=== PATIENT | female | born 1960 | race American Indian/Alaskan Native ===

== ENCOUNTER 2017-03-26 13:10 | Outpatient (CLI) | payer BC ==
--- NOTE | 2017-03-26 13:38 | XRay Report ---
ROUTINE CHEST, TWO VIEWS: HISTORY: Cough, fever, abnormal lung sounds. The trachea, heart, mediastinal contour, lung light and bony thorax are unremarkable. IMPRESSION: Unremarkable chest x-ray.
== END 2017-03-26 13:11 | disposition home or self-care (01) ==
LOC: XRAY 13:10
PROVIDERS: ATTEND Physician Assistant Medical
DX: R09.89 Other specified symptoms and signs involving the circulatory and respiratory systems (principal); R50.9 Fever, unspecified; R05 Cough
CPT/HCPCS: 71020

== ENCOUNTER 2021-01-22 09:01 | Outpatient (CLI) | payer BC ==
--- NOTE | 2021-01-22 11:38 | Mammography Report ---
DIGITAL SCREENING MAMMOGRAM WITH CAD, 01/22/2021 CLINICAL INFORMATION / INDICATION: Routine screening mammography. TECHNIQUE: Digital bilateral 2D mammography was obtained in the craniocaudal and mediolateral obliqu e projections. This examination was interpreted with the benefit of Computer-Aided Detection analysis . COMPARISON: Prior mammograms 01/19/2020 and 01/11/2019 FINDINGS: Breast Density: The breasts are almost entirely fatty. No dominant mass, suspicious calcifications, or architectural distortion in either breast. There has been no significant change compared with the prior examinations. IMPRESSION: No mammographic evidence of malignancy. Follow up recommendation: Routine yearly BI-RADS Category 1: Negative. A "normal" or negative report should not discourage follow up or biopsy of a clinically significant f inding. A written summary of these findings will be mailed to the patient. The patient will be entered into a mammography reporting system which will generate a reminder letter for the patient's next appointmen t at the appropriate interval. The [employer] recommends yearly mammograms starting at age 40 and continuing as l sridevi as a woman is in good health. Breast MRI is recommended for women with an approximate 20-25% or greater lifetime risk of breast cancer, including women with a strong family history of breast or ova david cancer or who have been treated for Hodgkin's disease. Signer Name: Yvonne Valencia MD Signed: 01/22/2021 11:34 AM Workstation Name: [id number]
== END 2021-01-22 09:02 | disposition home or self-care (01) ==
LOC: MAMMO 09:01
PROVIDERS: ATTEND Internal Medicine
DX: Z12.31 Encounter for screening mammogram for malignant neoplasm of breast (principal); N64.89 Other specified disorders of breast
CPT/HCPCS: 77067